=== PATIENT | male | born 1945 | race Caucasian/White ===

== ENCOUNTER 2020-11-03 11:05 | Outpatient (RCR) | payer MEDICARE, SELFPAY ==
[2016-09-23 21:40] VITALS: BMI 45.2
[2020-11-03] MEDS: COVID-19 VACC, MRNA(PFIZER)/PF 30 MCG/0.3 ML SYRINGE IM (16:55)
[2020-11-24] MEDS: COVID-19 VACC, MRNA(PFIZER)/PF 30 MCG/0.3 ML SYRINGE IM (16:19)
== END 2021-02-07 23:59 ==
LOC: IMMUN 11:05
PROVIDERS: PCP Internal Medicine; Visit Provider Family Medicine
DX: Z23 Encounter for immunization (principal)
CPT/HCPCS: 0001A; 0002A; 91300

== ENCOUNTER 2022-05-13 14:28 | Emergency (ER) | payer MEDICARE, SELFPAY ==
[2022-05-13 14:30] VITALS: BP 157/62; PULSE 94; RESP 18; TEMP 37.1; O2SAT 96; BMI 43.4
[2022-05-13 15:34] VITALS: BP 135/48; PULSE 98; RESP 16; TEMP 36.9; O2SAT 96
--- NOTE | 2022-05-13 15:51 | EDS_ITS ---
HPI History of Present Illness Chief Complaint: Lower Extremity Injury Informant: patient Narrative Narrative: Swelling right leg noted yesterday evening. 1 PM today noted increasing redness. No fevers or drainage. Right right total surgery 2 weeks ago for call us. This was under local analgesia. No diabetes history. No kidney disease history. Allergy to amoxicillin just causing swelling. History of superficial thrombophlebitis of his left leg in the past. No DVT history. No chest pains or shortness of breath. Saw urgent care today was sent here due to swelling. Prior similar symptoms: No PFSH PFSH Home Medications atorvastatin 20 mg tablet 20 mg PO QHS 09/23/16 [History Last Taken 09/22/16] levothyroxine 137 mcg tablet (Synthroid) 137 mcg PO DAILY 09/23/16 [History Last Taken 09/22/16] lisinopril 40 mg tablet (Zestril) 40 mg PO QHS 09/23/16 [History Last Taken 09/22/16] tadalafil 20 mg tablet (Cialis) 20 mg PO DAILY PRN erectile dysfunction 09/23/16 [History Last Taken 09/19/16] cephalexin 500 mg capsule 500 mg PO Q6 #40 caps 05/13/22 [Rx Last Taken Unknown] sulfamethoxazole 800 mg-trimethoprim 160 mg tablet (Bactrim DS) 1 tab PO Q12H #20 tabs 05/13/22 [Rx Last Taken Unknown] Allergy/AdvReac Type Severity Reaction Status Date / Time amoxicillin Allergy Swelling Verified 05/13/22 14:29 levofloxacin [From Levaquin] Allergy Swelling Verified 05/13/22 14:29 hydrocodone [From Vicodin] AdvReac Other Verified 05/13/22 14:29 meloxicam AdvReac Nausea/Vom/ Verified 05/13/22 15:34 Diarrhea LATEX BANDAGE Allergy Rash Uncoded 05/13/22 14:29 Social History Smoking Status: Never smoker ROS ROS ED Constitutional Constitutional ED: Denies chills, fever(s) or sweats Eyes Eyes: Denies change in vision ENT ENT ED: Denies dysphagia or sore throat Cardiovascular Cardiovascular: Denies chest pain, leg edema, palpitations or racing heartbeat Respiratory/Chest Respiratory/Chest: Denies cough, dyspnea or dyspnea on exertion Gastrointestinal Gastrointestinal: Denies abdominal pain, diarrhea, nausea or vomiting Genitourinary Genitourinary ED: Denies dysuria, hematuria or urinary frequency Musculoskeletal Musculoskeletal: Reports other Details: Right leg swelling ; Denies back pain, extremity pain or neck pain Integumentary Reports rash; Denies wounds Neurologic Neurologic: Denies headache(s), paresthesias or weakness EXAM Physical Exam Const Vital Signs: 05/13/22 14:30 05/13/22 15:34 Temperature 98.7 F 98.4 F Temperature Source Temporal Oral Pulse Rate 94 98 Respiratory Rate 18 16 Blood Pressure 157/62 H 135/48 H Blood Pressure Mean 93 77 Pulse Ox 96 96 Oxygen Delivery Method Room Air Room Air Positive well nourished and well developed General Appearance ED: well developed and NAD HEENT Reports moist mucous membranes normocephalic and atraumatic Eyes PERRL, EOMs intact bilaterally and conjunctivae normal General Eye ED: Yes normal appearance of both eyes Neck no lymphadenopathy and supple General: Negative for tenderness Chest Wall Chest: Negative for tenderness Resp normal respiratory effort and normal air movement Effort and Inspection: symmetric chest movement; Negative for respiratory distress Cardio regular rate, regular rhythm and no murmurs Peripheral Pulses: pulses 2+ throughout GI normal to inspection, nondistended, normoactive bowel sounds and non-tender Palpation: Negative for guarding or rebound tenderness present Back/Spine no CVA tenderness and no thoracic nor lumbar tenderness Extremity normal to inspection Extremity Narrative: 1+ lower extremity edema bilaterally. There is erythema to the distal leg proximal leg to the ankle, no drainage. No tenderness. Pulses are intact distally. General Extremety ED: Yes edema; Negative for tenderness General Extremity: edema Neuro oriented x3 and no sensory deficits noted Sensorium / Orientation: awake and alert Skin no rashes or lesions noted and no wounds MDM MDM MDM Narrative Medical decision making narrative: Right lower extremity erythema blanching however did not improve with elevation, lower suspicion for venous stasis. Erythema was outlined by myself. No current formal ultrasound available. He had a procedure 2 weeks ago under local analgesia. Low risk factors for DVT. No chest pains or shortness of breath. Formal outpatient ultrasound ordered for tomorrow. He started on Keflex and Bactrim. Return precautions. All questions were answered. Discharge Plan Triage Chief Complaint: Lower Extremity Injury ED Provider: Le,Elgin Dx/Rx/DC Orders Clinical Impression: Cellulitis of leg, right, Right leg swelling Instructions: ED Cellulitis Prescriptions: New sulfamethoxazole-trimethoprim [Bactrim DS] 800-160 mg tablet 1 tab PO Q12H Qty: 20 0RF cephalexin [cephalexin] 500 mg capsule 500 mg PO Q6 Qty: 40 0RF No Action levothyroxine [Synthroid] 137 MCG tablet 137 mcg PO DAILY Label Comments: thyroid atorvastatin 20 MG tablet 20 mg PO QHS Label Comments: cholesterol lisinopril [Zestril] 40 MG tablet 40 mg PO QHS Label Comments: blood pressure tadalafil [Cialis] 20 MG tablet 20 mg PO DAILY PRN (Reason: erectile dysfunction) Label Comments: erectile dysfunction Other Ambulatory Orders: Venous Duplex US, Unilateral (Stat) Facility: [facility] - Location: [facility] Ordered By: Dr. Elgin Weston Primary Care Provider: Lynne Echeverria Referrals: Lynne Echeverria MD [Primary Care Provider] - Activity Restrictions/Additional Instructions: Take antibiotic as prescribed. Return tomorrow for formal ultrasound of your right leg. Disposition Disposition: Home, Self Care Discharge Date/Time: 05/13/22 16:17
== END 2022-05-13 16:17 | disposition home or self-care (01) ==
LOC: ED 15:58
PROVIDERS: Emergency Provider Emergency Medicine; PCP Internal Medicine; Visit Provider Emergency Medicine
DX: L03.115 Cellulitis of right lower limb (principal); Z86.72 Personal history of thrombophlebitis
CPT/HCPCS: 99282

== ENCOUNTER → 2022-05-14 | Outpatient (CLI) | payer MEDICARE, SELFPAY ==
--- NOTE | 2022-05-14 11:14 | VDLE_ITS ---
Reason For Study: Swelling RIGHT GSV is normal. CFV is compressible, spontaneous, phasic, competent and demonstrates normal augmentation. FV is compressible, spontaneous, phasic, competent and demonstrates normal augmentation. POP V is compressible, spontaneous, phasic, competent and demonstrates normal augmentation. T/P Trunk is compressible. PTV is compressible. RT PerV is compressible. Procedure This is a venous duplex using B-mode, color flow and spectral Doppler. Exam performed in department. A preliminary report was called and/or faxed to PCP: Jacki. Patient seen in ED 05/13/2022. VL/Venous Duplex US, Unilateral Interpretation Summary There is no evidence of right lower extremity deep vein thrombosis. Right great saphenous vein appears patent and compressible segmentally. Ordering Physician: Elgin Weston Referring Physician: Lynne Echeverria Performed By: Camille Melendez RVT
== END | disposition home or self-care (01) ==
LOC: CVS 11:13
PROVIDERS: PCP Internal Medicine; Referring Provider Emergency Medicine; Visit Provider Emergency Medicine
DX: R22.41 Localized swelling, mass and lump, right lower limb (principal)
CPT/HCPCS: 93971

== ENCOUNTER 2024-12-15 20:03 | Emergency (ER) | payer MEDICARE, SELFPAY ==
[2024-12-15 20:03] VITALS: BP 170/77; PULSE 99; RESP 22; TEMP 36.3; O2SAT 96
[2024-12-15 20:04] VITALS: BP 170/77; PULSE 96; RESP 22; TEMP 36.3; O2SAT 99; BMI 37.9
--- NOTE | 2024-12-15 20:41 | US_ITS ---
PROCEDURE: VENOUS DUPLEX IMAG/LIMITED/UNI 12/15/2024 REASON FOR EXAM: M 79 y/o TECHNIQUE: Grayscale color flow and doppler analysis of the right lower extremity. COMPARISON: None FINDINGS: There is no intraluminal echogenicity to suggest the presence of a deep venous thrombosis. Appropriate respiratory variation, augmentation and venous compression is noted. US/Venous Duplex Imag/Limited/Uni IMPRESSION: No deep venous thrombosis identified in the extremity. Reading Location: [facility]
--- NOTE | 2024-12-15 20:49 | EDS_ITS ---
HPI <OLGA Fox - Last Filed: 12/15/24 21:49> History of Present Illness Chief Complaint: Lower Extremity Injury Narrative Narrative: Patient is a 79-year-old male with history of hyperlipidemia, hypertension, atrial fibrillation on Eliquis for 1 day, presents to the [facility] apartment for right leg swelling, right foot pain. Patient states over the last 2 days he is noticed that the pain to the right foot has been worse, it has been more swollen, he also has some redness. He was concerned for cellulitis. He went to urgent care and they were concerned for a DVT. He is here for evaluation. Denies any fever chills nausea or vomiting. [facility] <OLGA Fox - Last Filed: 12/15/24 21:49> [facility] Medical History (Updated 12/15/24 @ 21:48 by OLGA Fox) Atrial fibrillation Home Medications ?Medication ?Instructions ?Recorded ?Last Taken ?Type atorvastatin 20 mg tablet 20 mg PO QHS 09/23/16 History lisinopril 40 mg tablet (Zestril) 40 mg PO QHS 7 09/22/16 History tadalafil 20 mg tablet (Cialis) 20 mg PO DAILY PRN ere ctile 09/23/16 09/19/16 History dysfunction amlodipine 5 mg tablet 5 mg PO DAILY 12/15/24 Unkno wn History apixaban 5 mg tablet (Eliquis) 5 mg PO BID 12/15/24 Un known History doxycycline hyclate 100 mg capsule 100 mg PO BID #20 c aps 12/15/24 Unknown Rx levothyroxine 125 mcg tablet 125 mcg PO DAILY 12/15/24 Unknown History (Synthroid) Allergy/AdvReac Type Severity Reaction Status Date / Time amoxicillin Allergy Swelling Verified 12/15/24 20:04 latex Allergy Rash Verified 12/15/24 20:04 levofloxacin (From Levaquin) Allergy Swelling Verified 12/15/24 20:04 hydrocodone (From Vicodin) AdvReac Other Verified 12/15/24 20:04 meloxicam AdvReac Nausea/Vom/ Verified 12/15/24 20:04 Diarrhea Social History Smoking Status: Never smoker ROS <OLGA Fox - Last Filed: 12/15/24 21:49> ROS ED ROS Narrative Constitutional: Negative for fever, chills, weight loss, weakness Eyes: Negative for vision loss, vision change, double vision ENT: Negative for any sore throat, ear pain, congestion Cardiovascular: Negative for any chest pain, tightness, palpitations Respiratory: Negative for any cough, sputum production, hemoptysis, dyspnea, dyspnea on exertion, orthopnea Gastrointestinal: Negative for any abdominal pain, nausea, vomiting, diarrhea, constipation, blood in stool, blood in vomit : Negative for any urinary frequency, dysuria, retention, blood in urine Muscle skeletal: Negative for any neck pain, back pain. Positive pain to the right leg, right foot as well as some swelling Neurological: Negative for any headache, syncope, dizziness Skin: Negative for any rashes, itching, abrasions, lacerations Psychiatric: Negative for any depression, anxiety, stress, suicidal ideation, homicidal ideation Hematologic: Negative for any excessive bruising, easy bleeding EXAM <OLGA Fox - Last Filed: 12/15/24 21:49> Physical Exam Narrative Exam Narrative: Vital signs reviewed. Extremities: Patient does have some right lower leg edema however he states this is somewhat chronic. He has had multiple surgeries to the right foot. Patient does have some erythema, redness to the dorsal aspect the right foot to the distal metatarsals to the top of the foot. This is little tender on palpation. +2 pedal pulse.. Active full range of motion of all extremities. Neuro: Cranial nerves II through XII intact, no focal neurological deficits. Skin: Clean dry and intact with no rash, purpura, petechiae, vesicles or pustules. Backs/flank: No CVA tenderness, no midline spinal tenderness, no deformity. Psych: Normal mood and affect. No SI, HI or acute psychosis. Const Vital Signs: 12/15/24 20:03 12/15/24 20:04 12/15/24 21:00 Temperature 97.4 F L 97.4 F L 98.0 F Temperature Source Oral Temporal Oral Pulse Rate 99 96 65 Respiratory Rate 22 H 22 H 16 Blood Pressure 170/77 H 170/77 H 159/54 H Blood Pressure Mean 108 108 89 Pulse Ox 96 99 98 Oxygen Delivery Method Room Air Room Air Room Air 12/15/24 21:50 Temperature 98.0 F Temperature Source Pulse Rate 67 Respiratory Rate 18 Blood Pressure 163/76 H Blood Pressure Mean 105 Pulse Ox 98 Oxygen Delivery Method <Jeremy Arrieta MD - Last Filed: 12/15/24 23:48> Physical Exam Const Vital Signs: 12/15/24 20:03 12/15/24 20:04 12/15/24 21:00 Temperature 97.4 F L 97.4 F L 98.0 F Temperature Source Oral Temporal Oral Pulse Rate 99 96 65 Respiratory Rate 22 H 22 H 16 Blood Pressure 170/77 H 170/77 H 159/54 H Blood Pressure Mean 108 108 89 Pulse Ox 96 99 98 Oxygen Delivery Method Room Air Room Air Room Air 12/15/24 21:50 Temperature 98.0 F Temperature Source Pulse Rate 67 Respiratory Rate 18 Blood Pressure 163/76 H Blood Pressure Mean 105 Pulse Ox 98 Oxygen Delivery Method MDM <OLGA Fox - Last Filed: 12/15/24 21:49> [facility] Radiography Diagnostic Testing: Clinical Impression(s) from Imaging Studies Venous Duplex 12/15/24 20:41 IMPRESSION: No deep venous thrombosis identified in the extremity. Reading Location: [facility] Treatment and Re-Evaluation :: Differential diagnosis includes however is not limited to: DVT, cellulitis, necrotizing fasciitis, injury Patient appears generally well, vital signs are stable, patient is nontoxic- appearing. Presenting to the emergency department complaints of right lower leg swelling, redness of the foot. My physical examination, this is consistent with more of a cellulitis picture. However patient will receive a venous duplex to ensure there is no DVT. Patient's venous duplex was negative for any DVT of the right leg. At this time, patient be treated for cellulitis. Patient restarted doxycycline twice a day. Patient will follow-up closely with his PCP. Instructed to continue to elevate. All questions were answered, given strict return precautions to return for worsening redness, fever chills nausea vomiting <Jeremy Arrieta MD - Last Filed: 12/15/24 23:48> [facility] Narrative Medical decision making narrative: Dr. Arrieta: I have personally performed a face to face assessment of the patient and have reviewed the ABEL Note. I performed a substantive portion of the visit including all aspects of the following. My murphy findings include: History is right foot pain and redness. Patient states that he had what he thought was a bruise on his right foot, seen by his primary care provider but did not mention it. History of cellulitis in [address] way up to his knee. Exam is afebrile. Vital signs noted. Nontoxic-appearing. Inspection of the right foot does reveal erythema at the base of the toes mainly 2-3 and 4 with mild erythema of the right MTP. Palpable dorsalis pedis pulse. No crepitance. Medical Decision Making: It was not felt that laboratory work is indicated. Low clinical concern for necrotizing fasciitis. Patient seen at urgent care and told to come to the emergency department for rule out DVT. Ultrasound obtained and preliminary report shows no evidence of DVT. Patient will be treated with antibiotics. His prior ED visit was reviewed by the [employer] and initially he was going to be started on doxycycline given his allergy to amoxicillin, but in review he was placed on Bactrim and Keflex previously. Nurse practitioner discussed with the patient changing his antibiotics, but was apparently comfortable with continuing doxycycline. Follow-up primary care. Disposition is discharged in stable condition. Other additions or changes: [None] History & Record Review Discussion w/independent historian: Patient Radiography Diagnostic Testing: Clinical Impression(s) from Imaging Studies Venous Duplex 12/15/24 20:41 IMPRESSION: No deep venous thrombosis identified in the extremity. Reading Location: [facility] Discharge Plan Triage Chief Complaint: Lower Extremity Injury ED Midlevel Provider: Ronnie Murillo ED Provider: Jeremy Arrieta Dx/Rx/DC Orders Clinical Impression: Acute foot pain, Cellulitis of foot Instructions: ED Cellulitis Prescriptions: New doxycycline hyclate 100 mg capsule 100 mg PO BID Qty: 20 0RF No Action atorvastatin 20 MG tablet 20 mg PO QHS Patient Comments: cholesterol lisinopril [Zestril] 40 MG tablet 40 mg PO QHS Patient Comments: blood pressure tadalafil [Cialis] 20 MG tablet 20 mg PO DAILY PRN (Reason: erectile dysfunction) Patient Comments: erectile dysfunction amlodipine 5 mg tablet 5 mg PO DAILY levothyroxine [Synthroid] 125 mcg tablet 125 mcg PO DAILY Eliquis 5 mg tablet 5 mg PO BID Primary Care Provider: Lynne Echeverria Referrals: Lynne Echeverria MD [Primary Care Provider] - Activity Restrictions/Additional Instructions: Your venous duplex of the right lower extremity was negative for any DVT. You are being treated for cellulitis, take the doxycycline until finished Print Language: Tanzanian Disposition Disposition: Home, Self Care Discharge Date/Time: 12/15/24 22:00
[2024-12-15 21:00] VITALS: BP 159/54; PULSE 65; RESP 16; TEMP 36.7; O2SAT 98
[2024-12-15 21:50] VITALS: BP 163/76; PULSE 67; RESP 18; TEMP 36.7; O2SAT 98
[2024-12-15] MEDS: Doxycycline 100 MG CAPSULE PO (21:58)
== END 2024-12-15 22:00 | disposition home or self-care (01) ==
PROVIDERS: Emergency Provider Emergency Medicine; PCP Internal Medicine; Visit Provider Emergency Medicine
DX: M79.671 Pain in right foot (principal); I48.91 Unspecified atrial fibrillation; E78.5 Hyperlipidemia, unspecified; I10 Essential (primary) hypertension; L03.115 Cellulitis of right lower limb; Z79.899 Other long term (current) drug therapy; Z79.01 Long term (current) use of anticoagulants
CPT/HCPCS: 93971; 99282

== ENCOUNTER → 2025-04-15 | Outpatient (CLI) | payer MEDICARE, SELFPAY ==
--- NOTE | 2025-04-15 13:48 | CT_ITS ---
PROCEDURE: SINUS/FACIAL BONE 04/15/2025 REASON FOR EXAM: CHRONIC SINUSITIS TECHNIQUE: SINUS/FACIAL BONE Coronal and Sagittal reconstruction series were provided. One or more dose reduction techniques were used (e.g., Automated exposure control, adjustment of the mA and/or kV according to patient size, use of iterative reconstruction technique). RADIATION DOSE SUMMARY: CTDlvol: 28.14 mGy DLP: 700.46 mGycm COMPARISON: None. FINDINGS: Frontal: Clear. The ethmoidal and frontal recesses are patent. Ethmoid: Clear. Sphenoid: Unremarkable. The ethmoidal sphenoidal recess are patent. Maxillary: Status post bilateral uncinectomies. Minimal mucosal thickening of the alveolar recess of the right maxillary sinus. Turbinates: Unremarkable. Nasal Septum: Midline. Mastoids/Middle Ears: Clear. The orbits are unremarkable. No visualized acute intracranial abnormalities. CT/Sinus/Facial Bone IMPRESSION: No significant paranasal sinuses mucosal thickening. Reading Location: [id number]
== END | disposition home or self-care (01) ==
LOC: CT 13:47
PROVIDERS: PCP Internal Medicine; Referring Provider Otolaryngology; Visit Provider Otolaryngology
DX: J32.8 Other chronic sinusitis (principal)
CPT/HCPCS: 70486